=== PATIENT | female | born 1940 | race Caucasian/White ===

== ENCOUNTER 2018-06-12 21:41 | Outpatient (REF) | payer OTHER, SELFPAY ==
[2018-06-12 22:20] LABS: Anion Gap 9.8 mmol/L (3-11); BUN 10 mg/dL (7-18); CO2 28.2 mmol/L (21.0-32.0); CREATININE 0.85 mg/dL (0.55-1.02); Calcium 9.4 mg/dL (8.5-10.1); Chloride 104 mmol/L (98-107); Glucose 91 mg/dL (70-100); Potassium 3.8 mmol/L (3.5-5.1); Sodium 142 mmol/L (136-145); TSH (W/Ref FT4) 0.34 uIU/mL (0.358-3.74)
[2018-06-12 22:56] LABS: FREE T4 1.41 ng/dL (0.76-1.46)
== END 2018-06-12 22:01 ==
LOC: NCHCN 21:41
PROVIDERS: Visit Provider Internal Medicine
DX: I10 Essential (primary) hypertension (principal); E03.9 Hypothyroidism, unspecified
CPT/HCPCS: 80048; 84439; 84443

== ENCOUNTER 2018-10-14 12:20 | Outpatient (REF) | payer OTHER, SELFPAY ==
[2018-10-14 21:32] LABS: TSH (W/Ref FT4) 3.01 uIU/mL (0.358-3.74)
== END 2018-10-14 12:40 ==
LOC: NCHCN 12:20
PROVIDERS: PCP Internal Medicine; Visit Provider Internal Medicine
DX: E03.9 Hypothyroidism, unspecified (principal); J44.9 Chronic obstructive pulmonary disease, unspecified
CPT/HCPCS: 84443

== ENCOUNTER 2019-06-02 18:46 | Outpatient (REF) | payer OTHER, SELFPAY ==
[2019-06-02 21:49] LABS: HCT 33.9 % (36.0-46.0); HGB 10.4 g/dL (12.0-15.5); Mean Corp. HGB Concentration 30.7 g/dL (32.0-36.0); Mean Corpuscular Hemoglobin 26.5 pg (27.0-33.0); Mean Corpuscular Volume 86.3 fL (80-95); Mean Platelet Volume 9.8 fL (8.0-11.0); Platelet Count 359 x1000/uL (130-400); RBC 3.93 m/cumm (4.00-5.20); RBC Distribution Width 14.7 % (11.7-14.6); White Blood Cell Count 10.54 k/cumm (4.4-10.8)
[2019-06-02 22:27] LABS: ALT 15 U/L (14-59); AST 19 U/L (15-37); Albumin 3.2 g/dL (3.4-5.0); Alkaline Phosphatase 102 U/L (46-116); Anion Gap 10.3 mmol/L (3-11); BUN 12 mg/dL (7-18); Bilirubin, Total 0.3 mg/dL (0.2-1.0); CO2 26.7 mmol/L (21.0-32.0); CREATININE 0.91 mg/dL (0.55-1.02); Calcium 9.4 mg/dL (8.5-10.1); Calculated LDL 85 mg/dL; Chloride 105 mmol/L (98-107); Cholesterol 156 mg/dL (50-200); Estimated GFR 59.79 (mL/min/1.73m2); Glucose 95 mg/dL (70-100); HDL Cholesterol 56 mg/dL (40-60); Potassium 4.2 mmol/L (3.5-5.1); Sodium 142 mmol/L (136-145); TSH 4.01 uIU/mL (0.36-3.74); Total Protein 6.8 g/dL (6.4-8.2); Triglyceride 75 mg/dL (30-150)
[2019-06-03 11:12] LABS: Iron 20 ug/dL (50-175); Total Iron Binding Capacity 326 ug/dL (250-450); Transferrin Sat 6 % (15-50)
[2019-06-03 11:26] LABS: Ferritin 24 ng/mL (8-388)
== END 2019-06-02 19:06 ==
LOC: NCHCN 18:46
PROVIDERS: PCP Internal Medicine; Visit Provider Registered Nurse
DX: I10 Essential (primary) hypertension (principal); E03.9 Hypothyroidism, unspecified; E78.5 Hyperlipidemia, unspecified; I38 Endocarditis, valve unspecified; D64.9 Anemia, unspecified
CPT/HCPCS: 80053; 80061; 85027; 82728; 83540; 83550; 84443

== ENCOUNTER 2019-06-09 10:34 | Outpatient (REF) | payer OTHER, SELFPAY ==
[2019-06-09 21:03] LABS: HCT 35.8 % (36.0-46.0); Mean Corp. HGB Concentration 30.7 g/dL (32.0-36.0); Mean Corpuscular Hemoglobin 26.7 pg (27.0-33.0); Mean Corpuscular Volume 86.9 fL (80-95); Mean Platelet Volume 9.9 fL (8.0-11.0); Platelet Count 364 x1000/uL (130-400); RBC 4.12 m/cumm (4.00-5.20); RBC Distribution Width 15.1 % (11.7-14.6); White Blood Cell Count 10.68 k/cumm (4.4-10.8)
== END 2019-06-09 10:54 ==
LOC: NCHCN 10:34
PROVIDERS: PCP Registered Nurse; Visit Provider Registered Nurse
DX: D64.9 Anemia, unspecified (principal)
CPT/HCPCS: 85027

== ENCOUNTER 2019-07-03 18:23 | Outpatient (REF) | payer OTHER, SELFPAY ==
[2019-07-03 22:39] LABS: HCT 36.8 % (36.0-46.0); HGB 11.5 g/dL (12.0-15.5); Mean Corp. HGB Concentration 31.3 g/dL (32.0-36.0); Mean Corpuscular Hemoglobin 27.4 pg (27.0-33.0); Mean Corpuscular Volume 87.8 fL (80-95); Mean Platelet Volume 10.2 fL (8.0-11.0); Platelet Count 333 x1000/uL (130-400); RBC 4.19 m/cumm (4.00-5.20); RBC Distribution Width 16.8 % (11.7-14.6); White Blood Cell Count 11.56 k/cumm (4.4-10.8)
== END 2019-07-03 18:43 ==
LOC: NCHCN 18:23
PROVIDERS: PCP Registered Nurse; Visit Provider Registered Nurse
DX: R00.0 Tachycardia, unspecified (principal); D64.9 Anemia, unspecified; R01.1 Cardiac murmur, unspecified
CPT/HCPCS: 85027

== ENCOUNTER 2019-07-17 15:26 | Outpatient (REF) | payer OTHER, SELFPAY ==
[2019-07-17 21:17] LABS: HCT 34.2 % (36.0-46.0); HGB 10.5 g/dL (12.0-15.5); Mean Corp. HGB Concentration 30.7 g/dL (32.0-36.0); Mean Corpuscular Volume 87.9 fL (80-95); Mean Platelet Volume 9.8 fL (8.0-11.0); Platelet Count 283 x1000/uL (130-400); RBC 3.89 m/cumm (4.00-5.20); RBC Distribution Width 15.9 % (11.7-14.6); White Blood Cell Count 10.65 k/cumm (4.4-10.8)
== END 2019-07-17 15:46 ==
LOC: NCHCN 15:26
PROVIDERS: PCP Registered Nurse; Visit Provider Registered Nurse
DX: D64.9 Anemia, unspecified (principal)
CPT/HCPCS: 85027

== ENCOUNTER 2019-11-18 21:50 | Outpatient (REF) | payer OTHER, SELFPAY ==
[2019-11-18 20:33] LABS: ALT 18 U/L (14-59); AST 37 U/L (15-37); Alkaline Phosphatase 178 U/L (46-116); Anion Gap 8.1 mmol/L (3-11); BUN 7 mg/dL (7-18); Bilirubin, Total 0.3 mg/dL (0.2-1.0); CO2 27.9 mmol/L (21.0-32.0); CREATININE 0.68 mg/dL (0.55-1.02); Chloride 102 mmol/L (98-107); Glucose 92 mg/dL (74-106); Potassium 3.7 mmol/L (3.5-5.1); Sodium 138 mmol/L (136-145); Total Protein 6.4 g/dL (6.4-8.2)
[2019-11-18 21:18] LABS: Abs Immature Grans 0.05 k/cumm (0.0-0.09); Absolute Basophil Count 0.06 k/cumm (0.0-0.2); Absolute Eosinophil Count 0.93 k/cumm (0.0-0.7); Absolute Lymphocyte Count 1.08 k/cumm (1.2-3.4); Absolute Monocyte Count 0.96 k/cumm (0.11-0.7); Basophils % 0.5; Eosinophils % 7.9; HCT 32.2 % (36.0-46.0); HGB 9.7 g/dL (12.0-15.5); Immature Grans % 0.4 %; Lymphocytes % 9.2; Mean Corp. HGB Concentration 30.1 g/dL (32.0-36.0); Mean Corpuscular Hemoglobin 28.9 pg (27.0-33.0); Mean Corpuscular Volume 95.8 fL (80-95); Mean Platelet Volume 9.7 fL (8.0-11.0); Monocytes % 8.2; Neutrophils % 73.8; Platelet Count 486 x1000/uL (130-400); RBC 3.36 m/cumm (4.00-5.20); RBC Distribution Width 19.7 % (11.7-14.6); White Blood Cell Count 11.73 k/cumm (4.4-10.8)
[2019-11-18 21:26] LABS: Absolute Neutrophil Count 8.66 k/cumm (1.2-6.7)
[2019-11-18 22:31] LABS: Diff Comment Diff Reviewed
[2019-11-18 22:32] LABS: RBC Morphology Normal
[2019-11-21 14:07] LABS: Iron 30 ug/dL (50-170); Total Iron Binding Capacity 162 ug/dL (250-450); Transferrin Sat 19 % (15-50)
[2019-11-21 14:20] LABS: Ferritin 299 ng/mL (8-252)
== END 2019-11-18 22:10 ==
LOC: LBN 21:50
PROVIDERS: PCP Registered Nurse; Visit Provider Registered Nurse
DX: C18.6 Malignant neoplasm of descending colon (principal); K63.1 Perforation of intestine (nontraumatic); Z48.3 Aftercare following surgery for neoplasm
CPT/HCPCS: 80053; 82378; 82728; 83540; 83550; 85025

== ENCOUNTER 2019-12-11 19:46 | Outpatient (REF) | payer OTHER, SELFPAY ==
[2019-12-11 20:24] LABS: Abs Immature Grans 0.03 k/cumm (0.0-0.09); Absolute Basophil Count 0.05 k/cumm (0.0-0.2); Absolute Eosinophil Count 1.41 k/cumm (0.0-0.7); Absolute Monocyte Count 0.89 k/cumm (0.11-0.7); Basophils % 0.4; Eosinophils % 12.2; HCT 33.2 % (36.0-46.0); Immature Grans % 0.3 %; Lymphocytes % 11.9; Mean Corp. HGB Concentration 30.1 g/dL (32.0-36.0); Mean Corpuscular Hemoglobin 29.6 pg (27.0-33.0); Mean Corpuscular Volume 98.2 fL (80-95); Mean Platelet Volume 9.3 fL (8.0-11.0); Monocytes % 7.7; Neutrophils % 67.5; Platelet Count 539 x1000/uL (130-400); RBC 3.38 m/cumm (4.00-5.20); RBC Distribution Width 18.3 % (11.7-14.6); White Blood Cell Count 11.56 k/cumm (4.4-10.8)
[2019-12-11 20:31] LABS: Absolute Lymphocyte Count 1.38 k/cumm (1.2-3.4)
[2019-12-11 20:50] LABS: ALT 21 U/L (14-59); AST 38 U/L (15-37); Albumin 2.2 g/dL (3.4-5.0); Alkaline Phosphatase 139 U/L (46-116); Anion Gap 8.7 mmol/L (3-11); BUN 11 mg/dL (7-18); Bilirubin, Total 0.3 mg/dL (0.2-1.0); CO2 26.3 mmol/L (21.0-32.0); CREATININE 0.73 mg/dL (0.55-1.02); Calcium 9.2 mg/dL (8.5-10.1); Chloride 103 mmol/L (98-107); Glucose 104 mg/dL (74-106); Potassium 3.5 mmol/L (3.5-5.1); Sodium 138 mmol/L (136-145); Total Protein 6.3 g/dL (6.4-8.2)
[2019-12-15 11:10] LABS: CEA 2691.4 ng/mL (See Note)
== END 2019-12-11 20:06 ==
LOC: LBN 19:46
PROVIDERS: PCP Registered Nurse; Visit Provider Internal Medicine Hematology & Oncology
DX: C18.9 Malignant neoplasm of colon, unspecified (principal)
CPT/HCPCS: 80053; 82378; 85025